=== PATIENT | female | born 1955 | race Caucasian/White ===

== ENCOUNTER 2018-07-22 16:41 | Emergency (ER) | payer SELFPAY ==
--- NOTE | 2018-07-22 18:18 | RAD ---
LEFT KNEE FOUR VIEWS: 07/22/18 HISTORY: Fall. Left knee pain. FINDINGS/IMPRESSION: Degenerative changes are present. No acute fracture or dislocation identified. POS: [facility]
--- NOTE | 2018-07-22 18:20 | RAD ---
LEFT LEG TWO VIEWS: 07/22/18 HISTORY: Fall. Left leg pain. FINDINGS/IMPRESSION: No definite acute bony abnormality seen. If there is pain or tenderness in the regions of the ankle or knee, a dedicated radiographs of these regions should be obtained. POS: [facility]
--- NOTE | 2018-07-22 18:23 | RAD ---
PORTABLE LEFT HIP TWO VIEWS: 07/22/18 HISTORY: Hip pain, fall. FINDINGS/IMPRESSION: Bony detail is obscured due to technique and patient's body habitus. No definite displaced fracture o r dislocation is seen. If there is high suspicion for fracture, a CT scan should be performed. POS: [facility]
== END 2018-07-22 19:22 | disposition home or self-care (01) ==
LOC: ERS 16:41
DX: M25.562 Pain in left knee (principal); I10 Essential (primary) hypertension; F32.9 Major depressive disorder, single episode, unspecified; Z79.899 Other long term (current) drug therapy

== ENCOUNTER 2020-02-28 11:17 | Outpatient (CLI) | payer MEDICARE ==
--- NOTE | 2020-02-28 12:17 | RAD ---
EXAM: 3 views of the right knee HISTORY: Knee pain; osteoarthritis COMPARISON: None FINDINGS: No knee effusion is seen. There is no evidence of acute fracture or dislocation. No signifi cant degenerative changes are seen. Moderate tricompartmental osteophyte formation is seen consistent with osteoarthritis. Fragmentation is seen along the inferior pole of the patella. IMPRESSION: Moderate right knee osteoarthritis
--- NOTE | 2020-02-28 12:18 | RAD ---
EXAM: 3 views of the left knee HISTORY: Knee pain; osteoarthritis COMPARISON: None FINDINGS: No knee effusion is seen. There is no evidence of acute fracture or dislocation. There is m oderate tricompartmental joint space narrowing and osteophyte formation consistent with osteoarthritis. No soft tissue swelling is present. IMPRESSION: Moderate left knee osteoarthritis
== END 2020-02-28 11:18 | disposition home or self-care (01) ==
LOC: BICRAD 11:17
PROVIDERS: ATTEND Family Medicine
DX: M17.0 Bilateral primary osteoarthritis of knee (principal)

== ENCOUNTER 2020-07-05 13:36 | Outpatient (CLI) | payer MEDICARE | END 2020-07-05 13:37 | disposition home or self-care (01) | LOC: BICMAMMO 13:36 | PROVIDERS: ATTEND Family Medicine | DX: Z12.31 Encounter for screening mammogram for malignant neoplasm of breast (principal); Z85.43 Personal history of malignant neoplasm of ovary; Z80.3 Family history of malignant neoplasm of breast | CPT/HCPCS: 77063; 77067 ==

== ENCOUNTER 2021-08-22 01:26 | Emergency (ER) | payer MEDICARE ==
[2021-08-22] MEDS ORDERED: Ondansetron ODT 8 MG TAB ONE (02:37)
[2021-08-22] MEDS ORDERED: Ibuprofen 800 MG TAB ONE (03:17)
[2021-08-22] MEDS ORDERED: HYDROcodone/Acetaminophen 10/325 mg Tablet ONE (03:17)
== END 2021-08-22 04:01 | disposition home or self-care (01) ==
LOC: ERS 01:26
DX: S82.52XA Displaced fracture of medial malleolus of left tibia, initial encounter for closed fracture (principal); I10 Essential (primary) hypertension; Z79.899 Other long term (current) drug therapy; X50.1XXA Overexertion from prolonged static or awkward postures, initial encounter; Y92.002 Bathroom of unspecified non-institutional (private) residence as the place of occurrence of the external cause
CPT/HCPCS: 29515; Q0162

== ENCOUNTER 2023-09-26 08:15 | Emergency (ER) | payer MEDICARE ==
[2023-09-26 09:41] LABS: #Basophils 0.04 10x3/uL (0.0-0.2); %Basophils 0.8 % (0.0-1.0); %Eosinophils 3.1 % (0.0-10.0); %Lymphocytes 29.9 % (21.0-51.0); %Neutrophils 57.8 % (42.0-75.0); Hematocrit 39.2 % (36.0-47.0); Hemoglobin 13.2 g/dL (12.0-16.0); Mean Corpuscular HGB CONC 33.7 g/dL (32.0-36.0); Mean Corpuscular Hemoglobin 31.7 pg (27.0-31.0); Mean Platelet Volume 9.3 fL (7.4-10.4); Platelet Count 219 10x3/uL (130-400); RBC Distribution Width 13.2 % (11.5-14.5); Red Blood Cell (RBC) Count 4.17 mill/uL (4.20-5.40)
[2023-09-26 10:01] LABS: ALT (SGPT) 18 U/L (8-55); AST (SGOT) 23 U/L (5-34); Albumin 3.6 g/dL (3.4-4.8); Alkaline Phosphatase 62 U/L (40-110); Anion Gap 14 mmol/L (10-20); BUN (Urea Nitrogen) 15 mg/dL (9.8-20.1); Bilirubin, Total 0.4 mg/dL (0.2-1.2); Calc. Creatinine Clearance 0 mL/min (70-130); Calcium 10.1 mg/dL (7.8-10.44); Carbon Dioxide 26 mmol/L (23-31); Chloride 107 mmol/L (98-107); Estimated GFR 87; Globulin 3.9 g/dL (2.4-3.5); Glucose 107 mg/dL (80-115); Protein, Total 7.5 g/dL (5.8-8.1); Sodium 143 mmol/L (136-145)
== END 2023-09-26 11:59 | disposition home or self-care (01) ==
LOC: ERS 08:15
DX: R60.0 Localized edema (principal); I10 Essential (primary) hypertension
CPT/HCPCS: 36415; 80053; 83880; 85025

== ENCOUNTER 2024-12-29 14:22 | Outpatient (CLI) | payer MEDICARE | END 2024-12-29 14:23 | disposition home or self-care (01) | LOC: BICMAMMO 14:22 | PROVIDERS: ATTEND Family Medicine | DX: Z12.31 Encounter for screening mammogram for malignant neoplasm of breast (principal); Z80.3 Family history of malignant neoplasm of breast; Z85.43 Personal history of malignant neoplasm of ovary | CPT/HCPCS: 77063; 77067 ==